=== PATIENT | female | born 1940 | race Caucasian/White ===

== ENCOUNTER 2017-05-05 07:18 | Inpatient (IN) | payer OTHER ==
[2017-04-24 08:58] VITALS: BMI 32.0
--- NOTE | 2017-04-24 09:28 | PAT Medication Instructions ---
Service Date Apr 24, 2017. Current Home Medication List Atenolol (Atenolol), 1 TAB PO QAM Azithromycin (Zithromax), 250 MG PO QAM Calcium Carbonate-Cholecalcife (Caltrate 600+D), 3 TAB PO QAM Flaxseed (Linseed) (Flax Seed Oil), 1 CAP PO QAM Vitamin E (Vitamin E), 1 CAP PO QAM Medication Instructions For Your Scheduled Surgery - Hold the following medications as of 04/24/17: Flaxseed (Linseed) (Flax Seed Oil), 1 CAP PO QAM Vitamin E (Vitamin E), 1 CAP PO QAM - Hold the following medications the morning of surgery: Calcium Carbonate-Cholecalcife (Caltrate 600+D), 3 TAB PO QAM - Take the following medications the morning of surgery with a sip of water: Atenolol (Atenolol), 1 TAB PO QAM If you have any questions please call us at [phone] or [phone] or [phone]
--- NOTE | 2017-04-24 10:05 | DIAGNOSTIC IMAGING REPORT ---
CHEST PREADMISSION(PA/LAT) CLINICAL HISTORY: PAT preoperative evaluation COMPARISON STUDY: No previous studies for comparison. FINDINGS: 7 x 6 cm soft tissue density posterior aspect right lung base. Potentially represents space-occupying lesion versus lobulation of the posterior diaphragm. CT of the chest is suggested. Lungs otherwise are clear. No evidence for cardiac enlargement. IMPRESSION: Masslike process versus lobulation posterior right hemidiaphragm right lung base. CT of the chest is suggested. The study is otherwise negative. The above report was generated using voice recognition software. It may contain grammatical, syntax or spelling errors. Electronically signed by: Oscar Hernandez M.D. 04/24/2017 10:04 AM Dictated Date/Time: 04/24/2017 10:03 AM
[2017-04-24 10:22] LABS: BASO ABS # 0.05 K/uL (0-0.2); COMPLETE YES; EOS % 4.8 %; HEMATOCRIT 45.3 % (37-47); LYMPH % 44.7 %; LYMPH ABS # 2.13 K/uL (1.2-3.4); MEAN CELL VOLUME 89.5 fL (80-100); MEAN CORPUSCULAR HEMOGLOBIN 30.2 pg (25-34); MEAN CORPUSCULAR HGB CONC 33.8 g/dl (32-36); MEAN PLATELET VOLUME 9.9 fL (7.4-10.4); MONO % 7.8 %; NEUT % 41.7 %; PLATELET COUNT 267 K/uL (130-400); RED BLOOD COUNT 5.06 M/uL (4.2-5.4); WHITE BLOOD COUNT 4.77 K/uL (4.8-10.8)
[2017-04-24 10:24] LABS: URINE APPEARANCE CLEAR (CLEAR); URINE BILIRUBIN NEG (NEG); URINE COLOR YELLOW; URINE NITRITE NEG (NEG); URINE SPECIFIC GRAVITY 1.016 (1.000-1.030); UROBILINOGEN NEG (NEG)
[2017-04-24 10:27] LABS: MANUAL MICROSCOPIC REQUIRED? NO; REVIEW REQ? NO
[2017-04-24 10:34] LABS: PROTHROMBIN TIME (PATIENT) 10.2 SECONDS (9.0-12.0)
[2017-04-24 11:07] LABS: ESTIMATED AVERAGE GLUCOSE 111 mg/dl; HA1C FLAG Normal (Normal)
[2017-04-24 11:31] LABS: BUN/CREATININE RATIO 17.1 (10-20); CALCIUM 9.2 mg/dl (8.5-10.1); CREATININE 0.69 mg/dl (0.60-1.20); POTASSIUM 4.1 mmol/L (3.5-5.1)
[2017-05-05] VITALS (8 sets, daily range): BP systolic 106–193; BP diastolic 64–81; PULSE 55–68; TEMP 36.3–36.7; O2SAT 96–99; Ht 149.9 cm; Wt 72.6 kg
[~2017-05-05] VITALS: Ht 149.9 cm; Wt 72.6 kg
[2017-05-05] MEDS: TRANEXAMIC ACID INJ 1,000 MG in SODIUM CHLORIDE 0.9% 100ML 100 ML IV SCH ×2 (06:30→09:15)
[~2017-05-05 07:18] MED LIST: ACETAMINOPHEN 500 MG TAB PO SCH; AZIT250T PO; BUPIVACAINE 0.5 % 5 MG/1 ML PF 10ML VIAL ONE; CALC-354 PO; CEFAZOLIN 1000MG/55 ML D5W IV SCH; CEFAZOLIN 2000 MG/60 ML D5W 60 ML IV SCH; DEXAMETHASONE 4 MG TAB PO SCH; FAMOTIDINE 20 MG TAB PO SCH; FLAX10007 PO; GABAPENTIN 300 MG CAP PO SCH; LACTATED RINGER'S 1000ML 1,000 ML IV SCH; LACTATED RINGER'S 1000ML 500 ML IV ONE; LACTATED RINGER'S 1000ML IV SCH; METOCLOPRAMIDE HCL 10 MG TAB PO SCH; ROPIVACAINE 0.5% 5 MG/ML 30 ML VIAL ONE; ROPIVACAINE 5MG/ML 30 ML 150 MG, BUPIVACAINE/EPINEPHR 0.5% MPF 30 ML, KETOROLAC TROMETH... INFIL SCH; TNR50 PO; VITA10004 PO
--- NOTE | 2017-05-05 07:38 | History and Physical ---
History & Physical Date May 05, 2017. Chief Complaint RIGHT KNEE PAIN History of Present Illness The patient is a 76 year old female with complaints of right knee pain since July. Patient had an acute onset of pain after bowling. She rates her pain an 8-9/10 at worst. She has pain with her daily activities, she has limited standing and walking tolerance, pain is worse with weight bearing. Patient has failed injections, NSAIDS, and HEP. She is now scheduled to proceed with right TKA. Additional History Hepatic Disease: No Endocrine Disorder: No Kidney Disease: No Hypertension: No Heart Disease: No Bleeding Tendencies: No Infectious Diseases: No Other: DENIES CAD, DM, DVT Allergies Coded Allergies: Adhesives (Verified Allergy, Unknown, "skin peeled off", 04/24/17) Amoxicillin (Unverified Allergy, Unknown, Diarrhea,chills,vomiting, ) Clavulanic Acid (Unverified Allergy, Unknown, Diarrhea,chills,vomiting, ) Sulfa Antibiotics (Verified Allergy, Unknown, whole body rash and hives, ) Home Medications Scheduled Atenolol (Atenolol), 1 TAB PO QAM Azithromycin (Zithromax), 250 MG PO QAM Calcium Carbonate-Cholecalcife (Caltrate 600+D), 3 TAB PO QAM Flaxseed (Linseed) (Flax Seed Oil), 1 CAP PO QAM Vitamin E (Vitamin E), 1 CAP PO QAM Physical Examination Skin: warm/dry, no rash Eyes: normal inspection, EOMI, sclerae normal ENT: normal ENT inspection, pharynx normal Head: normocephalic, atraumatic Neck: supple, no adenopathy, trachea midline Respiratory/Chest: lungs clear, normal breath sounds, no respiratory distress Cardiovascular: regular rate, rhythm, no edema, no murmur Abdomen / GI: normal bowel sounds, non tender Back: normal inspection Extremities: + pertinent finding (VARUS DEFORMITY, ROM 0-115, +1 LAXITY, NO EDEMA, MILD EFFUSION) Neurologic/Psych: no motor/sensory deficits, alert, normal reflexes, oriented x 3 Diagnosis DJD RIGHT KNEE Plan of Treatment Patient is scheduled for right TKA with Dr. Pulido. We will plan on ASA for DVT prophylaxis.
--- NOTE | 2017-05-05 08:18 | History & Physical Bridge Note ---
H&P Re-Evaluation Bridge Note: I have examined the patient, reviewed the History & Physical and in the interval since the performance of the History & Physical I have noted the following changes of clinical significance: No changes noted
[2017-05-05] MEDS ORDERED: MIDAZOLAM HCL 1 MG/ML 2ML VIAL ONE (08:30)
[2017-05-05] MEDS ORDERED: POVIDONE-IODINE OP SOLN 30 ML BTL ONE (08:54)
[2017-05-05] MEDS ORDERED: ORTHO JOINT ANESTHETIC ONE (08:54)
[2017-05-05] MEDS ORDERED: BACITRACIN 50000 UNIT VIAL ONE (08:54)
[2017-05-05] MEDS ORDERED: ATROPINE SULFATE 0.1 MG/ML 5ML SYR IV PRN (09:30)
[2017-05-05] MEDS ORDERED: EpHEDrine SULFATE INJ 50 MG/ML AMP IV PRN (09:30)
[2017-05-05] MEDS ORDERED: HYDROmorphone INJ 2 MG/ML SYR/VIAL IV PRN (09:30)
[2017-05-05] MEDS ORDERED: PHENYLEPHRINE 100MCG/ML 5ML SYR IV PRN (09:30)
[2017-05-05] MEDS ORDERED: ONDANSETRON INJ 2 MG/ML 2 ML VIAL IV PRN ×2 (09:30→11:00)
[2017-05-05] MEDS ORDERED: EpHEDrine SULFATE 50MG/5ML SYR ONE (10:01)
[2017-05-05] MEDS ORDERED: PROPOFOL IV EMULSION 10 MG/ML 20 ML VIAL IV ONE (10:01)
--- NOTE | 2017-05-05 10:23 | [facility] Post Operative Brief Note ---
Immediate Operative Summary Operative Date May 05, 2017. Pre-Operative Diagnosis Right Knee Degenerative Joint Disease Post-Operative Diagnosis Same as preop Procedure(s) Performed Right Total Knee Arthroplasty Surgeon Dr. Pulido Legal Writing Professor Surgeon(s) Waqas Melo PA-C Estimated Blood Loss 10 ml Findings DJD Specimens A. Right Knee Bone and Tissue Complication(s) None Disposition Recovery Room / PACU
[2017-05-05] MEDS ORDERED: ALUMINUM/MAGNESIUM/SIMETH (MAALOX MAX) 30 ML UDC PO PRN (11:00)
[2017-05-05] MEDS ORDERED: BISACODYL 10 MG SUPP PR PRN (11:00)
[2017-05-05] MEDS ORDERED: MAGNESIUM HYDROXIDE SUSP 30 ML UDC PO PRN (11:00)
[2017-05-05] MEDS ORDERED: MoRPHine SULFATE 2 MG/ML CARP IV PRN (11:00)
[2017-05-05] MEDS ORDERED: MoRPHine SULFATE 4 MG/ML 1 ML CARP\\VIAL IV PRN (11:00)
--- NOTE | 2017-05-05 11:26 | DIAGNOSTIC IMAGING REPORT ---
RIGHT KNEE 2 VIEWS History: Right total knee arthroplasty. Degenerative arthritis. Postop. FINDINGS: The patient is status post a right total knee arthroplasty. The hardware is intact. No fracture or dislocation. Skin gus and surgical drains are in place. IMPRESSION: Right total knee arthroplasty. No evidence for hardware complication. Electronically signed by: Geoff Wilcox M.D. 05/05/2017 11:24 AM Dictated Date/Time: 05/05/2017 11:24 AM
--- NOTE | 2017-05-05 11:29 | Anesthesiology Progress Note ---
Anesthesia Post Op Note Date & Time May 05, 2017 at 11:29 Vital Signs Pain Intensity: 0 Vital Signs Past 12 Hours Date Time Temp Pulse Resp B/P (MAP) Pulse Ox O2 Delivery O2 Flow Rate FiO2 05/05/17 11:15 60 15 145/63 98 Nasal Cannula 2 05/05/17 11:05 60 16 136/64 98 Nasal Cannula 2 05/05/17 10:57 36.6 66 23 129/79 100 Oxymask 10 05/05/17 07:56 36.7 55 20 193/76 98 Room Air Notes Mental Status: alert / awake / arousable, participated in evaluation Pt Amnestic to Procedure: Yes Nausea / Vomiting: adequately controlled Pain: adequately controlled Airway Patency, RR, SpO2: stable & adequate BP & HR: stable & adequate Hydration State: stable & adequate Anesthetic Complications: no major complications apparent
[2017-05-05] MEDS: D5W AND 1/2NSS + 20MEQ KCL 1,000 ML IV SCH ×2 (12:59→23:06)
[2017-05-05] MEDS ORDERED: NURSING VERBAL MED ORDER ONE (13:30)
[2017-05-05] MEDS: ACETAMINOPHEN 500 MG TAB PO SCH ×2 (14:04→21:15)
[2017-05-05] MEDS: FERROUS GLUCONATE 324 MG TAB PO SCH ×2 (14:04→18:10)
[2017-05-05] MEDS: CEFAZOLIN IV 1,000 MG in DEXTROSE 5% 50ML 50 ML IV SCH (18:09)
[2017-05-05] MEDS: SENNA 8.6 MG TAB PO SCH (21:13)
[2017-05-05] MEDS: DOCUSATE SODIUM 100 MG CAP PO SCH (21:14)
[2017-05-05] MEDS: ASPIRIN 81 MG ECTAB PO SCH (21:26)
[2017-05-06] MEDS: CEFAZOLIN IV 1,000 MG in DEXTROSE 5% 50ML 50 ML IV SCH (01:33)
[2017-05-06 03:28] VITALS: BP 104/64; PULSE 65; TEMP 36.6; O2SAT 97
[2017-05-06] MEDS: ACETAMINOPHEN 500 MG TAB PO SCH ×3 (05:39→21:26)
[2017-05-06 06:34] LABS: HEMATOCRIT 39.1 % (37-47); MEAN CELL VOLUME 89.3 fL (80-100); MEAN CORPUSCULAR HEMOGLOBIN 28.3 pg (25-34); MEAN CORPUSCULAR HGB CONC 31.7 g/dl (32-36); PLATELET COUNT 258 K/uL (130-400); RED BLOOD COUNT 4.38 M/uL (4.2-5.4); WHITE BLOOD COUNT 13.62 K/uL (4.8-10.8)
[2017-05-06 07:16] LABS: BUN/CREATININE RATIO 17.6 (10-20); CALCIUM 8.3 mg/dl (8.5-10.1); CREATININE 0.79 mg/dl (0.60-1.20); POTASSIUM 4.1 mmol/L (3.5-5.1)
[2017-05-06 07:38] VITALS: BP 152/75; PULSE 63; TEMP 36.5; O2SAT 98
--- NOTE | 2017-05-06 08:27 | Orthopedic Progress Note ---
Orthopedic Progress Note Date of Service May 06, 2017. Subjective Post OP Day: 1 Reports: feeling well, Denies: chest pain, SOB, nausea / vomiting, light headedness, calf pain Objective calves soft nontender, N/V intact, dressing C/D/I, A&O x3, toes mobile, hemovac drainage (30/25CC PER SHIFT) Date Time Temp Pulse Resp B/P (MAP) Pulse Ox O2 Delivery O2 Flow Rate FiO2 05/06/17 07:38 36.5 63 18 152/75 (100) 98 Room Air 05/06/17 03:28 36.6 65 16 104/64 (77) 97 Room Air 05/06/17 00:00 Room Air 05/05/17 23:04 36.6 58 16 157/73 (101) 99 Room Air 05/05/17 19:12 36.3 62 18 149/81 (103) 97 Room Air 05/05/17 15:01 36.5 68 18 106/67 (80) 97 Nasal Cannula 2.0 05/05/17 13:56 36.3 59 17 114/64 (81) 98 Nasal Cannula 2.0 05/05/17 13:05 36.7 63 17 136/73 (94) 97 Nasal Cannula 2.0 05/05/17 12:32 65 18 149/74 (99) 98 Nasal Cannula 2.0 05/05/17 12:00 96 Nasal Cannula 2.0 05/05/17 12:00 36.4 59 16 123/73 (90) 96 Nasal Cannula 2.0 05/05/17 12:00 96 Nasal Cannula 2.0 05/05/17 11:45 61 15 124/58 97 Nasal Cannula 2 05/05/17 11:35 58 17 133/60 98 Nasal Cannula 2 05/05/17 11:25 36.5 58 17 136/62 98 Nasal Cannula 2 05/05/17 11:15 60 15 145/63 98 Nasal Cannula 2 05/05/17 11:05 60 16 136/64 98 Nasal Cannula 2 05/05/17 10:57 36.6 66 23 129/79 100 Oxymask 10 Laboratory Results 24 Hours: Test 05/06/17 05:46 Hematocrit 39.1 % Hemoglobin 12.4 g/dL Assessment & Plan Assessment: POD#1 SP RIGHT TKA Plan: PT/OT DVT PROPH- asa BID PAIN MANGEMENT- JANETH, TYLENOL DC PLANNING- HOME WITH HOME PT, ADVANTAGE, LIKELY WEDS.
--- NOTE | 2017-05-06 08:28 | Discharge Instructions ---
Discharge Instructions Date of Service May 06, 2017. Admission Reason for Admission: Right Knee Osteoarthritis Discharge Discharge Diagnosis / Problem: SP RIGHT TKA Discharge Goals Goal(s): Decrease discomfort, Improve function, Increase independence Activity Recommendations Activity Limitations: per Instructions/Follow-up section . Instructions / Follow-Up Instructions / Follow-Up ACTIVITY RECOMMENDATIONS: SELF CARE INSTRUCTIONS AFTER TOTAL KNEE REPLACEMENT A. You may need to continue a physical therapy program after discharge from the hospital. There are several options available to you. Your doctor will assist you in selecting the best one for you. 1. An out-patient facility 2 to 3 times a week for therapy or home therapy. 2. Continue working on all exercises taught to you in the hospital. Your goals should be to increase bending of your knee to 90 degrees and beyond and to fully straighten your knee. B. You may progress at your own pace from walking with a walker or crutches to a cane; then to no assistive devices. C. Make walking a part of your daily routine. Be up as much as comfortable with rest periods throughout the day. Rest with leg elevation is very important. Use the ice wrap frequently for the first 3-4 weeks. D. There are no restrictions on activities. You may ride in a car, shop, participate in digital advertising specialist and all social activities. E. Wear the long elastic stockings (ROHIT hose) 20 hours a day for 2 weeks after surgery. They can be removed several times a day for laundering and for a bath. F. You may shower, no tub baths until cleared by your doctor. SPECIAL CARE INSTRUCTIONS: VERY IMPORTANT TO READ AND REVIEW A. There are a few signs you need to watch for after you are home. Call [facility] if you notice any of the followin. Increased severe knee pain. Some pain is expected especially when you exercise. 2. Increased swelling in your leg or knee; pain or swelling of the calf muscle in either lower leg. 3. Any fluid drainage from the incision. 4. Shortness of breath or chest pain. B. Please call [facility] at if you have any concerns or questions about your operation or recovery. The doctor or his nurse will return your call promptly. C. You must take antibiotics before dental work, bladder, bowel or other surgery. Your doctor will provide you with a permanent care to carry describing this precaution. IMPORTANT: * REMEMBER TO TAKE ASPIRIN, 81 MG, TWICE DAILY FOR 4 WEEKS UNLESS OTHERWISE DIRECTED. THIS IS YOUR BLOOD THINNER. * HIGH RISK PATIENTS MAY BE PRESCRIBED A STRONGER BLOOD THINNER. THIS WILL BE PROVIDED AT DISCHARGE. * CALL IF INCREASED PAIN, REDNESS, DRAINAGE OR FEVER GREATER THAT 101. * WEAR ROHIT HOSE 20 HOURS PER DAY FOR 2 WEEKS. Standard gus/no adhesive- Please keep incision clean and dry. You may shower. Gus should be removed in 10-14 days at the office. This appointment is likely already scheduled for you. Please call if any increased redness, drainage, or swelling. FOLLOW UP VISIT: If appointment is not already scheduled: Please call [facility] to make a follow-up appointment for 2 weeks after your surgery at . Current Hospital Diet Patient's current hospital diet: Regular Diet Discharge Diet Recommended Diet: Regular Diet Procedures Procedures Performed: Right Total Knee Arthroplasty Pending Studies Studies pending at discharge: no Laboratory Results Hemoglobin A1c Test 04/24/17 09:37 Range/Units Estimated Average Glucose 111 mg/dl Hemoglobin A1c 5.5 4.5-5.6 % Medical Emergencies . Who to Call and When: Medical Emergencies: If at any time you feel your situation is an emergency, please call 911 immediately. . Non-Emergent Contact Non-Emergency issues call your: Surgeon . "Provider Documentation" section prepared by Lynn Stuart. . VTE Core Measure Inpt VTE Proph given/why not?: Other Anticoagulation, T.E.D. Stockings, SCD's [place] Drug Monitoring Program Search Results: patient reviewed within database, no issues identified
[2017-05-06] MEDS: D5W AND 1/2NSS + 20MEQ KCL 1,000 ML IV SCH (08:32)
[2017-05-06] MEDS: ASPIRIN 81 MG ECTAB PO SCH ×2 (08:33→20:44)
[2017-05-06] MEDS: FERROUS GLUCONATE 324 MG TAB PO SCH ×3 (08:33→18:19)
[2017-05-06] MEDS: PANTOprazole SOD 40 MG TAB PO SCH (08:33)
[2017-05-06] MEDS: DOCUSATE SODIUM 100 MG CAP PO SCH ×2 (08:33→20:44)
[2017-05-06] MEDS: MULTIVITAMIN TAB PO SCH (08:34)
[2017-05-06] MEDS: OXYCODONE HCL IR 5 MG TAB (IMMEDIATE RELEASE) PO PRN ×2 (10:57→18:41)
[2017-05-06 12:04] VITALS: BP 145/84; PULSE 53; TEMP 36.6; O2SAT 100
[2017-05-06 15:45] VITALS: BP 138/71; PULSE 63; TEMP 36.6; O2SAT 99
[2017-05-06] MEDS: SENNA 8.6 MG TAB PO SCH (20:44)
[2017-05-06 22:45] VITALS: BP 127/64; PULSE 63; TEMP 36.5; O2SAT 96
[2017-05-07] MEDS: TRAMADOL HCL 50 MG TAB PO PRN ×2 (01:33→08:29)
[2017-05-07] MEDS: ACETAMINOPHEN 500 MG TAB PO SCH (05:41)
[2017-05-07 07:25] VITALS: BP 146/75; PULSE 66; TEMP 36.8; O2SAT 94
[2017-05-07] MEDS: FERROUS GLUCONATE 324 MG TAB PO SCH (08:21)
[2017-05-07] MEDS: MULTIVITAMIN TAB PO SCH (08:22)
[2017-05-07] MEDS: ASPIRIN 81 MG ECTAB PO SCH (08:22)
[2017-05-07] MEDS: PANTOprazole SOD 40 MG TAB PO SCH (08:22)
[2017-05-07] MEDS: DOCUSATE SODIUM 100 MG CAP PO SCH (08:22)
--- NOTE | 2017-05-07 08:37 | Orthopedic Progress Note ---
Orthopedic Progress Note Date of Service May 07, 2017. Subjective Post OP Day: 2 Reports: feeling well, Denies: chest pain, SOB, nausea / vomiting, light headedness, calf pain Objective calves soft nontender, N/V intact, incision C/D/I, A&O x3, toes mobile Date Time Temp Pulse Resp B/P (MAP) Pulse Ox O2 Delivery O2 Flow Rate FiO2 05/06/17 23:36 Room Air 05/06/17 22:45 36.5 63 16 127/64 (85) 96 Room Air 05/06/17 15:45 36.6 63 18 138/71 (93) 99 Room Air 05/06/17 15:30 Room Air 05/06/17 12:04 36.6 53 18 145/84 (104) 100 Room Air Assessment & Plan Assessment: POD#2 SP RIGHT TKA Plan: PT/OT DVT PROPH- asa BID PAIN MANGEMENT- JANETH, TYLENOL DC PLANNING- HOME WITH HOME PT, ADVANTAGE, LIKELY WEDS. DC HOME TODAY
[2017-05-07] MEDS ORDERED: RXC5 PO (08:40)
[2017-05-07] MEDS ORDERED: ACET-24 PO (08:40)
[2017-05-07] MEDS ORDERED: SNK PO (08:40)
[2017-05-07] MEDS ORDERED: ASPEC81 PO (08:40)
[2017-05-07] MEDS ORDERED: ONDA8TAB6 PO (08:40)
[2017-05-07 11:03] VITALS: BP 146/75; PULSE 66; TEMP 36.8; O2SAT 94
--- NOTE | 2017-05-12 13:46 | DISCHARGE SUMMARY ---
DISCHARGE DIAGNOSIS: Degenerative joint disease, right knee. SECONDARY DIAGNOSIS: Hypertension. CONSULTS: None. COMPLICATIONS: None. PROCEDURES: Right total knee arthroplasty performed by Dr. Pulido on 05/05/2017. BRIEF HISTORY: As dictated in history and physical. HOSPITAL SUMMARY: The patient was admitted on the above date and had the above-noted surgery performed which she tolerated well. On the first postoperative day, she was feeling well and had no complaints. Calves were soft, nontender, neurovascularly intact. Dressings clean, dry and intact. Toes were mobile. Vital signs stable. She was afebrile and hemoglobin was 12.4. She was started on physical therapy protocol and continued on DVT prophylaxis and pain management. She was planning for [facility] for physical therapy and wound care upon her discharge. The rest of her stay was essentially uneventful and by her second postoperative day, she was feeling well and had no complaints. Calves were soft, nontender. Neurovascularly intact. Incision was benign. Toes were mobile. She was progressing with her physical therapy and it was felt she could be discharged to home. For further review, please see chart. LAB AND X-RAY DATA: As per chart. DISCHARGE INSTRUCTIONS: The patient was discharged to home in satisfactory condition on 05/07/2017. DIET: Regular. ACTIVITY: Follow TK instruction sheets and special care instructions as noted. Follow up with Dr. Pulido in 2 weeks. The patient to call for appointment if one has not been made for you. DISCHARGE MEDICATIONS: Acetaminophen 1000 mg p.o. q. 8 hours for 30 days, aspirin 81 mg p.o. b.i.d., Zofran 8 mg p.o. q. 8 hours p.r.n. nausea, oxycodone 5-10 mg p.o. q. 4 hours p.r.n., senna 17.2 mg p.o. at bedtime. Resume taking atenolol 50 mg p.o. q.a.m., Caltrate 600 plus D3 tabs p.o. q.a.m., flaxseed 1 cap p.o. q.a.m. and vitamin E 1 cap p.o. q.a.m.
--- NOTE | 2017-05-16 09:15 | OPERATIVE REPORT ---
DATE OF OPERATION: 05/05/2017 PREOPERATIVE DIAGNOSIS: Osteoarthritis, right knee. POSTOPERATIVE DIAGNOSIS: Osteoarthritis, right knee. PROCEDURE: Right total knee arthroplasty. SURGEON: Dr. Pulido. BARREL REPAIRER: Waqas Melo PA-C. ANESTHESIA: Spinal. COMPLICATIONS: None. DESCRIPTION OF PROCEDURE: Following induction of spinal anesthesia, the patient's right leg was prepped and draped in the usual sterile manner. Limb was exsanguinated with an Esmarch bandage and tourniquet was inflated to 350 mmHg. A longitudinal incision was made anteriorly. Subcutaneous tissue was sharply dissected. Electrocautery was used for hemostasis. Prepatellar bursa was incised and median parapatellar incision was performed. Patella was everted and the knee was flexed. Fat pad was removed to aid in visualization and the anterior and posterior cruciate ligaments were removed. The medial face of the tibia was cleared of soft tissue first with a Bovie and a Baptiste elevator. This tissue was retracted posteriorly using a blunt Hohmann. A Shepherd retractor was used to expose the synovium above on the anterior aspect of the femur and this was removed down to bone. The PSI guide was placed on the distal femur and two pins were placed anteriorly and kept in position and two additional pins were placed distally and removed. The distal femoral cutting block was placed in position and the distal femoral cut was used in the +0 setting. Next, the cutting block was removed and the femoral size 2 block was placed in the distal end of the femur. Care was taken to ensure appropriate external rotation and feeler gauge was used to ensure no notching would occur. The femoral block was centered on the distal femur and in the medial and lateral direction and was fixed using two bone screws. The gold pins were then removed. The oscillating saw was used to create the bone cuts and the distal femoral cutting block was removed and the reciprocating saw was used to further trim the femoral cuts as well as a deep in the area for the trochlear groove. Next, posterior condyle remnants were removed. Following this, a meniscal clamp and knife were utilized to remove the anterior portion of both medial and lateral meniscus. The proximal tibia PSI guide was placed into position and the proximal tibial cutting guide was screwed into position. The extra medullary alignment guide was utilized to ensure appropriate alignment. The proximal tibia was cut and the proximal tibial cutting block was removed and this bone fragment was removed. The appropriate guide was used to perform the notch cut on the distal femur and a lamina assistant track and field coach and a cochlear knife were utilized to finish both medial and lateral meniscectomies to remove any remnants of the posterior or anterior cruciate ligaments. Following this, the distal femoral component was impacted into position and blunt Mor was used to sublux the tibia anteriorly. The proximal tibia was sized and a size 2 tibial tray was chosen as the size to be used. This was put into position and appropriate external rotation and a double check with extramedullary alignment guide was performed. The canal for the tibial stem was prepared first with a 17 mm drill and then the punch and a mallet and the trial tibial poly was placed. A 15 was chosen the size to be used. It was brought to extension and the patella was prepared with the patellar reamer. A 33 component was chosen the size to be used. The trial component was placed and knee was taken through a full range of motion and there was found to be no lateral subluxation of the tibia. No lateral release was required. The trials were all removed. The final components were obtained and assembled. Cement was mixed. The knee was thoroughly irrigated and the ortho mix was injected about the knee joint. The final components were cemented into position. After thoroughly suctioning and drying the bone ends, all excess cement was removed. The knee was held in extension while the cement hardened. The wound was irrigated and closed over a Hemovac drain. #1 Vicryl was used to close the extensor mechanism. Subcutaneous tissues closed using 0 Dexon. Skin was closed with gus. Sterile dressing of Adaptic, 4 x 4's, sterile Webril, and Isak was applied. The patient tolerated the procedure well and went to recovery room in stable condition. Due to the complex nature of the procedure, the entire surgery was performed with the operational assistance of Waqas Melo PA-C. The academic assistant, under direct supervision, was involved in the actual performance of all aspects of the surgical procedure including hemostasis, tissue retraction and incision, instrument management, patient positioning, and wound closure. I attest to the content of the Intraoperative Record and any orders documented therein. Any exception s are noted below.
== END 2017-05-07 11:30 | disposition home health service (06) | DRG 470 ==
LOC: C.ACU 07:18 → C.3E 08:00 → ENRESERV 11:46
PROC: 0SRC0J9 Replacement of Right Knee Joint with Synthetic Substitute, Cemented, Open Approach (ICD-10-PCS; principal; 2017-05-05 09:15)
DX: M17.11 Unilateral primary osteoarthritis, right knee (principal); Z88.2 Allergy status to sulfonamides